=== PATIENT | male | born 1985 | race Caucasian/White ===

== ENCOUNTER 2016-10-31 14:30 | Emergency (ER) | payer BC, OTHER ==
[~2016-10-31] VITALS: Ht 193 cm; Wt 90.7 kg
[~2016-10-31 14:30] MED LIST: HYDR-3720 PO
[2016-10-31] MEDS ORDERED: TETANUS,DIPTH,PERTUSS P/F (BOOSTRIX) 0.5 ML VIAL IM STA (15:08)
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
[2016-10-31] MEDS ORDERED: CEPH500T PO (16:19)
[2016-10-31 16:34] VITALS: BP 0/0
== END 2016-10-31 16:37 | disposition home or self-care (01) ==
LOC: EDUNIT# 14:30 → ER 14:32
DX: S60.222A Contusion of left hand, initial encounter (principal); Z23 Encounter for immunization; W22.8XXA Striking against or struck by other objects, initial encounter; Y92.009 Unspecified place in unspecified non-institutional (private) residence as the place of occurrence of the external cause; Y99.8 Other external cause status
CPT/HCPCS: 73130; 90471; 90715

== ENCOUNTER 2016-11-27 13:01 | Emergency (ER) | payer OTHER ==
[~2016-11-27] VITALS: Ht 193 cm; Wt 90.7 kg
[~2016-11-27 13:01] MED LIST changes: +CEPH500T PO
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
[2016-11-27 13:25] VITALS: BP 129/87
== END 2016-11-27 13:25 | disposition home or self-care (01) ==
LOC: EDUNIT# 13:01 → ER 13:04
DX: S01.81XA Laceration without foreign body of other part of head, initial encounter (principal); W51.XXXA Accidental striking against or bumped into by another person, initial encounter; Y99.8 Other external cause status